=== PATIENT | female | born 1980 | race Caucasian/White ===

== ENCOUNTER 2016-10-13 17:53 | Inpatient (IN) | payer MEDICAID ==
[~2016-10-13] VITALS: Ht 172.7 cm; Wt 93.9 kg
[2016-10-13 18:00] VITALS: Ht 172.7 cm; Wt 93.9 kg
[2016-10-13] MEDS ORDERED: LIDOCAINE 1% BUFFERED 1 ML SYR INTRADERM PRN (19:20)
[2016-10-13] MEDS ORDERED: LACT RINGERS 1,000 ML IV SCH (19:20)
[2016-10-13] MEDS ORDERED: CLINDAMYCIN 900 MG in DEXTROSE 5% 50 ML IV SCH (19:20)
[2016-10-13] MEDS ORDERED: FAMOTIDINE 20 MG INJ IV PRN (19:20)
[2016-10-13] MEDS ORDERED: OXYTOCIN 15 UNITS/250 ML NS 250 ML IV SCH ×2 (19:20→23:10)
[2016-10-13] MEDS ORDERED: ONDANSETRON 4 MG VIAL IV PRN (19:20)
[2016-10-13] MEDS ORDERED: ALU/MAG/SIM 30 ML UDC PO PRN (19:20)
[2016-10-13] MEDS ORDERED: ACETAMINOPHEN 325 MG TAB PO PRN (19:20)
[2016-10-13] MEDS ORDERED: TERBUTALINE 1 MG/ML VIAL SUBQ PRN (19:20)
[2016-10-13] MEDS ORDERED: Flu Vaccine Quadrivalent 60 MCG/0.5 ML IM.VACC ONE (19:20)
[2016-10-13] MEDS ORDERED: CLINDAMYCIN 900 MG in DEXTROSE 5% 50 ML IV PRN (19:20)
[2016-10-13] MEDS ORDERED: PHARMACY TO DOSE GENTAMICIN IV PRN (19:20)
[2016-10-13] MEDS ORDERED: MORPHINE 4 MG/ML SYR IV PRN (19:20)
[2016-10-13] MEDS ORDERED: METOCLOPRAMIDE 10 MG/2 ML VIAL IV PUSH PRN (19:20)
[2016-10-13] MEDS ORDERED: FAMOTIDINE 20 MG TAB PO PRN (19:20)
[2016-10-13] MEDS ORDERED: PROMETHAZINE 25 MG/ML VIAL IV PRN (19:20)
[2016-10-13] MEDS ORDERED: LIDOCAINE 1% 30 ML PF INFILTRATE ONE (19:20)
[2016-10-13] MEDS ORDERED: SODIUM CHLORIDE 0.9% IV PRN (19:25)
[2016-10-13] MEDS ORDERED: GENTAMICIN IV PRN (19:25)
[2016-10-13 23:00] VITALS: BP_SYST 137; RESP 18
[2016-10-13] MEDS ORDERED: MAG HYDROX 30 ML UDC PO PRN (23:10)
[2016-10-13] MEDS ORDERED: ZOLPIDEM 5 MG TAB PO PRN (23:10)
[2016-10-13] MEDS ORDERED: BISACODYL 10 MG SUPP RECTAL PRN (23:10)
[2016-10-13] MEDS ORDERED: TDaP 0.5 ML VIAL IM.VACC ONE (23:10)
[2016-10-13] MEDS ORDERED: IRON SUCROSE COMPLEX 500 MG in SODIUM CHLORIDE 0.9% 250 ML IV ONE (23:10)
[2016-10-13] MEDS ORDERED: DERMOPLAST SPRAY TOPICAL PRN (23:10)
[2016-10-13] MEDS ORDERED: ASTRINGENT MED PADS 40'S TOPICAL PRN (23:10)
[2016-10-13 23:30] VITALS: BP_SYST 126; RESP 18; TEMP 98.4
[2016-10-13] MEDS: MEASLES,MUMPS,RUBELLA VAC SUBQ.VACC ONE (23:38)
[2016-10-13] MEDS: Ibuprofen 600 MG TAB PO SCH (23:43)
[2016-10-13] MEDS: MISOPROSTOL 200 MCG TAB PO SCH (23:43)
[2016-10-13 23:45] VITALS: BP_SYST 137; RESP 18
[2016-10-14] VITALS (7 sets, daily range): BP systolic 116–142; RESP 16–20; TEMP 97.3–98.1
[2016-10-14] MEDS: MISOPROSTOL 200 MCG TAB PO SCH (03:23)
[2016-10-14] MEDS: Ibuprofen 600 MG TAB PO SCH ×3 (05:01→18:06)
[2016-10-14] MEDS: PRENATAL VITAMIN TAB PO SCH (08:01)
[2016-10-14] MEDS: DOCUSATE SOD 100 MG CAP PO SCH ×2 (08:01→21:14)
[2016-10-14] MEDS ORDERED: NICOTINE 21 MG/24 HR TRANSDERM SCH (09:00)
[2016-10-15] MEDS: NICOTINE 21 MG/24 HR TRANSDERM SCH ×2 (00:09→23:39)
[2016-10-15] MEDS: Ibuprofen 600 MG TAB PO SCH ×5 (00:10→23:38)
[2016-10-15 01:54] VITALS: BP_SYST 125; RESP 16; TEMP 98.1
[2016-10-15 05:45] VITALS: BP_SYST 127; RESP 16; TEMP 97.7
[2016-10-15] MEDS: PRENATAL VITAMIN TAB PO SCH (08:40)
[2016-10-15] MEDS: DOCUSATE SOD 100 MG CAP PO SCH ×2 (08:41→21:59)
[2016-10-15 09:35] VITALS: BP_SYST 137; RESP 18; TEMP 97.8
[2016-10-15 17:26] VITALS: BP_SYST 144; RESP 18; TEMP 98.3
[2016-10-16 05:11] VITALS: BP_SYST 126; RESP 16; TEMP 97.7
[2016-10-16] MEDS ORDERED: MEASLES,MUMPS,RUBELLA VAC SUBQ.VACC ONE (05:44)
[2016-10-16] MEDS: Ibuprofen 600 MG TAB PO SCH (05:51)
[2016-10-16] MEDS: MEASLES,MUMPS,RUBELLA VAC SUBQ.VACC ONE (05:53)
[2016-10-16] MEDS: PRENATAL VITAMIN TAB PO SCH (08:18)
[2016-10-16] MEDS: DOCUSATE SOD 100 MG CAP PO SCH (08:19)
[2016-10-16 09:05] VITALS: BP_SYST 131; RESP 24; TEMP 98.1
[2016-10-16 09:29] VITALS: BP_SYST 131; RESP 24; TEMP 98.1
== END 2016-10-16 10:15 | disposition home or self-care (01) | DRG 775 ==
LOC: LDOP 17:53 → LD 19:15 → OB 10-14 02:00
PROVIDERS: ADMIT Obstetrics & Gynecology; ATTEND Obstetrics & Gynecology
PROC: 10E0XZZ Delivery of Products of Conception, External Approach (ICD-10-PCS; principal; 2016-10-13)
PROC: 0KQM0ZZ Repair Perineum Muscle, Open Approach (ICD-10-PCS; 2016-10-13)
CPT/HCPCS: 59025; 81002; 82803; 85014; 85018; 85025; 86850; 86900; 86901; 90471; 90707; 96372

== ENCOUNTER 2016-11-09 20:45 | Emergency (ER) | payer MEDICAID ==
[2016-11-09] MEDS ORDERED: KEPPRA 500 MG in SOD CHLOR 0.9% INJ 100 ML IV ONE (23:00)
== END 2016-11-10 00:51 | disposition home or self-care (01) ==
LOC: ER 20:45
DX: R56.9 Unspecified convulsions (principal); T50.996A Underdosing of other drugs, medicaments and biological substances, initial encounter; Z91.138 Patient's unintentional underdosing of medication regimen for other reason; Y92.008 Other place in unspecified non-institutional (private) residence as the place of occurrence of the external cause; Z79.899 Other long term (current) drug therapy; F17.210 Nicotine dependence, cigarettes, uncomplicated
CPT/HCPCS: 36415; 80053; 80307; 81001; 84703; 85025; 96365